=== PATIENT | female | born 1950 | race Caucasian/White ===

== ENCOUNTER 2024-07-31 15:14 | Emergency (ER) | payer MEDICARE, SELFPAY ==
--- NOTE | ~2024-07-31 | CT_ITS ---
EXAMINATION: CT brain wo con DATE: 07/31/2024 16:03 INDICATION: Fall with left-sided head injury, headache and facial pain. TECHNIQUE: Computed tomography (CT) of the head was performed without intravenous contrast. Sagittal and coronal reconstructions were performed. The mA was adjusted according to patient size. Iterative reconstruction technique was employed. The dose-length product was 605.33 mGy-cm. COMPARISON: None FINDINGS: No fracture. No acute intracranial hemorrhage or acute infarction. 2.3 x 2.3 x 1.9 cm CSF attenuation likely arachnoid cyst in the right middle cranial fossa which exerts mass effect upon the anterior r ight temporal lobe. There is mild scattered white matter hypoattenuation consistent with chronic smal l vessel ischemic disease. Ventricles are normal and symmetric. There is an an enlarged CSF filled em pty sella in the pelvis. No masses identified. Changes of left intraocular lens replacement. Partial opacification of the bilateral sphenoid sinuses with thickened sclerotic sewell consistent with chroni c sinusitis. The orbits, paranasal sinuses and mastoid air cells are normal. IMPRESSION: 1. No fracture or acute intracranial process. 2. Enlarged empty sella which can be seen secondary to idiopathic intracranial hypertension. Reviewed, dictated and finalized at location A. OR INFORMATICA ETL DEVELOPER IMPRESSION: 1. No fracture or acute intracranial process. 2. Enlarged empty sella which can be seen secondary to idiopathic intracrania l hypertension.
--- NOTE | ~2024-07-31 | CT_ITS ---
EXAMINATION: CT facial & cervical spine wo DATE: 07/31/2024 16:03 INDICATION: Head injury. TECHNIQUE: Computed tomography (CT) of the maxillofacial region and cervical spine was performed with out intravenous contrast. Automated exposure control and iterative reconstruction technique were empl oyed. The dose-length product was 214.09 mGy-cm. COMPARISON: None FINDINGS: MAXILLOFACIAL CT: There is left frontal scalp soft tissue swelling. There are likely changes of left ocular lens replac ement surgery. The mastoid air cells are normal. The sella is enlarged and contiguous with aggressive lytic change involving the sphenoid sinus and clivus and pterygoid bones. There is sclerosis of the sewell of the sphenoid sinus. There is fluid attenuation in the sella and contiguous sphenoid sinus an d clivus with foci of gas. There is a cystic area in the adjacent right middle cranial fossa abutting the sella. CERVICAL SPINE CT: There is mild scarring at the lung apices. There is 2 mm anterolisthesis of C3 on C4. There is kyphos is of cervical spine. There is 13 degrees levoscoliosis of cervicothoracic spine. Vertebral body heig hts are normal. There is moderately decreased disc height at C3-C4, mildly decreased disc height at C 4-C5, and severely decreased disc height at C5-C6 and C6-C7. The following disc levels are specifical ly discussed: C2-C3: There is mild left uncovertebral joint osteoarthritis. There is mild bilateral facet joint ost eoarthritis. There is no neural foraminal stenosis. There is mild central canal stenosis. C3-C4: There is severe bilateral uncovertebral joint osteoarthritis. There is severe bilateral facet joint osteoarthritis. There is mild bilateral neural foraminal stenosis. There is no central canal st enosis. C4-C5: There is mild bilateral uncovertebral joint osteoarthritis. There is mild right facet joint os teoarthritis. There is no neural foraminal stenosis. There is no central canal stenosis. C5-C6: There is severe bilateral uncovertebral joint osteoarthritis. There is mild bilateral facet salome int osteoarthritis. There is mild bilateral neural foraminal stenosis. There is mild central canal st enosis. C6-C7: There is severe bilateral uncovertebral joint osteoarthritis. There is severe bilateral facet joint osteoarthritis. There is mild bilateral neural foraminal stenosis. There is mild central canal stenosis. C7-T1: There is no uncovertebral joint osteoarthritis. There is mild bilateral facet joint osteoarthr itis. There is no neural foraminal stenosis. There is no central canal stenosis. IMPRESSION: 1. No fracture. 2. Severe cervical spondylosis. 3. Abnormality of the middle skull base including the sella. These findings may be chronic sinusitis or neoplasm with subsequent surgical change. Correlate with surgical history. If there has been no pr ior surgery, brain MRI without and with contrast is recommended. Reviewed, dictated and finalized at location A. W CUTTER IMPRESSION: 1. No fracture. 2. Severe cervical spondylosis. 3. Abnormality of the middle skull base including the sella. These findings may be chronic sinusitis or neoplasm with subsequent surgical change. Correlate wi th surgical history. If there has been no prior surgery, brain MRI without and with contrast is recommended.
--- NOTE | ~2024-07-31 | CT_ITS ---
Clinical indication:Fall COMPARISON:None TECHNIQUE: Multiple contiguous axial images of the pelvis were performed without the administration o f intravenous contrast. FINDINGS: No acute or subacute fractures are appreciated. Superior lateral femoral acetabular joint space narrowing is redemonstrated system with osteoarthriti s. No cross-sectional imaging evidence to suggest osteonecrosis is present. Within the abdomen the appendix is unremarkable. Fecal stasis within the cecum. The bladder is minimally distended, and partially prolapsed. Densely calcified atherosclerotic disease is also noted. IMPRESSION: No acute or subacute fracture, as detailed above. Reviewed, dictated and finalized at location A. DESIGNER
--- NOTE | ~2024-07-31 | CT_ITS ---
EXAMINATION: CT lumbar spine wo con DATE: 07/31/2024 16:06 INDICATION: Low back pain. Fall. TECHNIQUE: Computed tomography (CT) of the lumbar spine was performed without intravenous contrast. A utomated exposure control and iterative reconstruction technique were employed. The dose-length produ ct was 690.75 mGy-cm. COMPARISON: None FINDINGS: There are old healed right rib fractures. There is 15 degrees levoscoliosis of lumbar spine . There is 5 mm anterolisthesis of L5 on S1. There is a compression fracture of L1 with 1/5 loss of h eight. There is moderately decreased disc height at L3-L4 and severely decreased disc height at L4-L5 and L5-S1. The following disc levels are specifically discussed: L1-L2: The disc does not extend beyond the endplate margin. There is mild bilateral facet joint osteo arthritis. There is no neural foraminal stenosis. There is no central canal stenosis. L2-L3: The disc is bulging. There is mild bilateral facet joint osteoarthritis. There is mild bilater al neural foraminal stenosis. There is mild central canal stenosis. L3-L4: The disc is bulging. There is severe bilateral facet joint osteoarthritis. There is moderate r ight and mild left neural foraminal stenosis. There is moderate central canal stenosis. L4-L5: The disc is bulging. There is severe bilateral facet joint osteoarthritis. There is moderate r ight and mild left neural foraminal stenosis. There is moderate central canal stenosis. L5-S1: The disc is bulging. There is severe bilateral facet joint osteoarthritis. There is moderate b ilateral neural foraminal stenosis. There is mild central canal stenosis. IMPRESSION: 1. L1 compression fracture, likely acute or subacute. 2. Severe lumbar spondylosis. 3. Lumbar levoscoliosis. Reviewed, dictated and finalized at location A. NT COORDINATOR
[2024-07-31 15:15] VITALS: BP 139/79; PULSE 60; RESP 20; TEMP 36.6; O2SAT 100
--- NOTE | 2024-07-31 15:25 | ED_ITS ---
HPI - Fall General Chief Complaint: Fall Stated Complaint: fall Time Seen by Provider: 07/31/24 15:25 Source: patient Mode of arrival: ambulatory Limitations: no limitations History of Present Illness HPI Narrative: Patient is a 74-year-old female with an accidental mechanical fall off of bed into a countertop next to the bed and hit her face and hip. She has pain to the left supraorbital face and left hip and lower back. MD complaint: fall Onset (ago): hour(s) (1) Fall from: out of bed ( Patient usually has a oneill size and she was in a twin and rolled off the bed accidentally) Fall witnessed: no Place fall occurred: home Loss of consciousness: none Prolonged down time: no Symptoms prior to fall: none Context: other ( patient fell out of bed and hit the counter top next to the bed accidentally) Location of injury: face, back ( lumbar region) and pelvis ( left hip /femur) Location of injury - extremities: Left: thigh Severity: moderate Severity scale (1-10): 4 Quality: sharp and throbbing Associated symptoms (after fall): denies Related Data Allergies Allergy/AdvReac Type Severity Reaction Status Date / Time epinephrine Allergy Unknown Unknown Verified 07/31/24 15:16 Penicillins Allergy Unknown Unknown Verified 07/31/24 15:16 Review of Systems Review of Systems: All systems reviewed & are unremarkable except as noted in HPI and below Constitutional: Constitutional: Reports no additional constitutional complaints Eyes: Eyes: Reports no additional eye complaints ENT: Reports system reviewed and no additional complaints, except as documented Cardiovascular: Cardiovascular: Reports no additional cardiovascular complaints Respiratory: Respiratory: Reports no additional respiratory complaints Gastrointestinal: Gastrointestinal: Reports no additional gastrointestinal complaints Genitourinary: Genitourinary: Reports no additional female genitourinary complaints Musculoskeletal: Musculoskeletal: Reports no additional musculoskeletal complaints Integumentary/Breasts: Skin/Breast: Reports system reviewed and no additional complaints, except as docu Neurologic: Reports system reviewed and no additional complaints, except as documented Psychiatric: Psychiatric: Reports no additional psychiatric complaints Endocrine: Endocrine: Reports no additional endocrine complaints Hematologic/Lymphatic: Hematologic/Lymphatic: Reports no additional hematologic/lymphatic complaints Allergic/Immunologic: Allergic/Immunologic: Reports no additional allergic/immunologic complaints Exam Const: General: healthy appearing Nutritional Appearance: well nourished Orientation/consciousness: patient oriented x3 HENMT: Head: normal to inspection Ears: external ears normal Face/Nose/Sinus: Normal external nose present Other: left supraorbital forehead region has ecchymosis and hematoma formation Eyes: Conjunctivae: conjunctivae normal Pupils: Equal, round and reactive pupils present EOM: EOMs intact bilaterally Neck: Neck: normal visual inspection Chest: Chest palpation & inspection: normal inspection of the chest Resp: Effort & Inspection: normal respiratory effort and not labored Auscultation: clear to auscultation bilaterally and no crackles Cardio: Rate: regular rate Rhythm: regular rhythm Heart sounds: no murmurs GI: Inspection: non-distended GI Palp: Yes Soft to palpation and No Tenderness to palpation present (GI) Auscultation: normal bowel sounds : General: Yes bladder normal to palpation Back/Spine/Pelvis: Back: no CVA tenderness Skin: General skin exam: normal color Rashes: no rashes Wounds: no wounds Other: ecchymosis of the left hip region Neuro: General: patient oriented x3 Cranial nerves: Yes Nystagmus not present Speech: normal speech Gait exam (Neuro): Normal gait present Extrem: General: normal to inspection Other: tender left hip to palpation; tender lumbar spine to palpation Psych: Mental Status: mental status grossly normal Affect: normal affect Attitude: cooperative Course Vital Signs Vital signs: Vital Signs Oxygen Delivery Room Air 07/31/24 15:14 Temperature 36.6 C 07/31/24 15:15 Pulse Rate 72 07/31/24 17:30 Respiratory Rate 18 07/31/24 17:30 Blood Pressure 150/84 H 07/31/24 17:30 Pulse Oximetry 97 07/31/24 17:30 Oxygen Delivery Room Air 07/31/24 17:30 MDM - Fall MDM Narrative Medical decision making narrative: patient is a 74-year-old female with a fall out of bed prior to arrival and injuries to her left forehead and left hip and lumbar spine. We will do CT scans for reassurance at this time. Her CT scans shows middle brain asymmetry and it correlates with her history of prior brain tumor removal. She is aware of the abnormality in her brain. Imaging Data Attestation: I personally reviewed and interpreted this imaging study as follows: Radiologist's impression: CT scan of the head is negative for acute process; chronic changes seen from prior brain tumor CT scan of the C-spine is negative for acute process CT scan of the pelvis is negative for acute process CT scan of lumbar spine is positive for L1 acute compression fracture Discharge Plan Discharge Clinical Impression: Compression fracture, Brain neoplasm Fall Qualifiers: Encounter type: initial encounter Qualified Code(s): W19.XXXA - Unspecified fall, initial encounter Patient Disposition: Home, Self-Care Condition: Stable Instructions: Procedures for Compression Fractures of the Spine (DC) Additional Instructions: please make an appointment for a local primary doctor. You can have a discussion about doing kyphoplasty for your lumbar fracture. we discussed the brain abnormality and you are aware about this finding chronically. Patient Language: Kiswahili Prescriptions: New hydrocodone-acetaminophen 5-325 mg tablet 1 tablet PO Q8H PRN (Reason: pain) Qty: 20 0RF Follow-up/Referrals: Christiano,Simran Mcpherson APN [Primary Care Provider] - Time of Disposition: 17:49
[2024-07-31 16:50] VITALS: BP 147/85; PULSE 70; RESP 18; O2SAT 98
[2024-07-31 17:15] VITALS: BP 149/84; PULSE 73; RESP 18; O2SAT 97
--- NOTE | 2024-07-31 17:15 | PC.NURSE ---
PT HAS BEEN UP TO RR IN WC WITH RN, TOLERATED WELL. PT RETURNED TO STRETCHER, WARM BLANKETS PROVIDED. DAUGHTER REMAINS AT BEDSIDE. PT IS AWAITING ERP DECISION AT THIS TIME. WILL CONTINUE TO MONITOR.
[2024-07-31 17:30] VITALS: BP 150/84; PULSE 72; RESP 18; O2SAT 97
== END 2024-07-31 17:55 | disposition home or self-care (01) ==
PROVIDERS: Emergency Provider Emergency Medicine; PCP Nurse Practitioner Family
DX: S32.010A Wedge compression fracture of first lumbar vertebra, initial encounter for closed fracture (principal); D49.6 Neoplasm of unspecified behavior of brain; W06.XXXA Fall from bed, initial encounter
CPT/HCPCS: 70450; 70486; 72125; 72131; 72192; 99284

== ENCOUNTER 2025-04-18 23:04 | Emergency (ER) | payer MEDICARE, SELFPAY ==
--- NOTE | ~2025-04-18 | CT_ITS ---
EXAMINATION: CT abdomen pelvis wo con DATE: 04/19/2025 00:33 INDICATION: Abdominal pain TECHNIQUE: Computed tomography (CT) of the abdomen and pelvis was performed without intravenous contrast. The dose-length product was 132.00 mGy-cm. Automated exposure control and iterative reconstruction technique were employed. COMPARISON: CT dated 07/31/2024 FINDINGS: There is bibasilar dependent atelectasis. Heart size normal. Calcified granulomas of the spleen. The liver, pancreas, adrenal glands and kidneys are unremarkable. There is fluid throughout the colon without wall thickening, consistent with diarrhea. Normal appendix. Gallbladder is distended. No significant small bowel dilation. Moderate fecal loading of the distal colon and rectum. There is stranding of the right inguinal soft tissues, likely from recent heart catheterization. There is a fat-containing left inguinal hernia. There is a fat-containing umbilical hernia. Is a chronic L1 superior endplate compression fracture which has progressed since 07/31/2024 with approximately 40% loss of vertebral body height. Severe lumbar spondylosis. Grade 1 spondylolisthesis at L5-S1. IMPRESSION: 1. Diffusely distended colon containing fluid without bowel wall thickening, compatible with diarrhea. 2: Interval progression of L1 superior endplate compression fracture compared with 07/31/2024. 3: Fat stranding of the right inguinal soft tissues, consistent with recent catheterization. Reviewed, dictated and finalized at location O. IMPRESSION: 1. Diffusely distended colon containing fluid without bowel wall thickening, co mpatible with diarrhea. 2: Interval progression of L1 superior endplate compression fracture compared with 07/31/2024. 3: Fat stranding of the right inguinal soft tissues, consistent with recent cat heterization.
[2025-04-18 23:05] VITALS: BP 123/71; PULSE 62; RESP 14; O2SAT 98
[2025-04-18] MEDS: SODIUM CHLORIDE 0.9% IV 1,000 ML 999 ML IV CONT (23:29)
--- NOTE | 2025-04-18 23:32 | PC.NURSE ---
LAB AT THE BEDSIDE
[2025-04-18 23:39] VITALS: TEMP 37.1
--- NOTE | 2025-04-18 23:43 | PC.NURSE ---
PATIENT AND DAUGHTER UPDATED ON LENGTH OF TIME FOR BLOOD WORK THEN FOR CT. VERBALIZED UNDERSTANDING. PATIENT IS AWARE THAT A URINE SAMPLE IS NEEDED. NS INFUSING TO LEFT WRIST AT THIS TIME
[2025-04-18 23:44] LABS: Hematocrit 31.8 % (35.0-42.0); Hemoglobin 9.9 g/dL (11.7-13.8); Immature Granulocyte Percent A 0.6 % (0.0-0.0); Immature Platelet Fraction Pct 0.8 % (1.0-7.0); Lymphocytes Absolute Auto 1.89 K/mm3 (1.10-4.50); Mean Corpuscular HGB Conc 31.1 g/dL (32-36); Mean Corpuscular Hemoglobin 29.1 pg (27.0-31.0); Mean Corpuscular Volume 93.5 fL (78.0-102.0); Nucleated Red Blood Cells Absolute Auto 0.00 K/mm3 (0.00-0.00); Nucleated Red Blood Cells Perc 0.0 % (0-0.0); Platelet Count Result 541 K/mm3 (150-420); Red Blood Count 3.40 M/mm3 (4.20-5.40); White Blood Count 11.8 K/mm3 (4.8-10.8)
[2025-04-18 23:48] VITALS: BP 125/67; PULSE 59; RESP 16; O2SAT 97
[2025-04-18 23:57] LABS: Alanine Aminotransferase 14 U/L (6-35); Albumin Level 4.5 g/dL (3.5-5.1); Alkaline Phosphatase 115 U/L (38-126); Anion Gap 6 mmol/L (4-12); Aspartate Amino Transferase 29 U/L (14-36); Bilirubin,Total 0.7 mg/dL (0.2-1.3); Blood Urea Nitrogen 28 mg/dL (7-17); Calcium 9.7 mg/dL (8.4-10.2); Carbon Dioxide 26 mmol/L (22-30); Chloride 102 mmol/L (98-107); Estimated CRCL calculation 27 ml/min; Glucose 121 mg/dL (65-110); Lipase 194 U/L (23-300); Osmolality Calculated 284 mOsm/kg (285-295); Potassium 4.7 mmol/L (3.4-5.0); Sodium 134 mmol/L (137-145); Total Protein 9.2 g/dL (6.3-8.2)
[2025-04-18 23:58] LABS: INR 1.0; Partial Thromboplastin Time 26.3 Sec (23.9-30.70); Prothrombin Time 11.1 Seconds (9.50-12.1)
[2025-04-19 00:01] VITALS: BP 138/74; PULSE 64; RESP 13; O2SAT 100
--- NOTE | 2025-04-19 00:02 | PC.NURSE ---
PATIENT BEING TRANSPORTED TO CT VIA WHEEL CHAIR
[2025-04-19 00:06] LABS: NT Pro B Type Natriuretic Pept 534 pg/mL (19.9-100)
--- NOTE | 2025-04-19 00:18 | PC.NURSE ---
PATIENT HAS RETURNED FROM CT
[2025-04-19 00:21] VITALS: BP 135/80; PULSE 66; RESP 11; O2SAT 99
[2025-04-19 00:27] LABS: Thyroid Stimulating Hormone 7.290 uIU/mL (0.465-4.680)
[2025-04-19 00:31] VITALS: BP 110/81; PULSE 65; RESP 21; O2SAT 100
[2025-04-19 00:31] LABS: Estimated Glomerular Filt Rate 34
--- NOTE | 2025-04-19 00:34 | PC.NURSE ---
PATIENT RESTING ON STRETCHER. DAUGHTER AT HER SIDE. CURRENTLY DENIES ANY NEEDS. PATIENT HAS CALL LIGHT IN REACH.
[2025-04-19 00:46] VITALS: BP 130/67; PULSE 62; RESP 12; O2SAT 96
--- NOTE | 2025-04-19 00:56 | ED_ITS ---
HPI - General Adult General Chief complaint: Unspecified Stated complaint: Constipation Time Seen by Provider: 04/18/25 23:22 Source: patient and family Limitations: no limitations History of Present Illness HPI narrative: This is a 75-year-old female with a history of peripheral vascular disease was recently discharged from the hospital after she had a stent placed for peripheral artery disease right leg. Patient also has a fracture of her right wrist approximately 2 months ago and was started on narcotic pain medicine and presents tonight with some unable to have a bowel movement for the past 2 weeks. She has some abdominal discomfort with no pain with palpation no flank pain does have some dysuria with no fever chills no chest pain or shortness of breath no flank pain no diarrhea constipation no nausea vomiting. Onset (ago): week(s) Severity: moderate Related Data Home Medications ?Medication ?Instructions ?Recorded ?Confirmed ?Last Taken ?Type aspirin 81 mg tablet,delayed 81 mg PO DAILY 04/18/25 1 Unknown History release (Adult Aspirin Regimen) atorvastatin 80 mg tablet 80 mg 04/18/25 Unknown Hist ory buspirone 10 mg tablet mg 04/18/25 Unknown History carvedilol 3.125 mg tablet mg 04/18/25 Unknown Histor y empagliflozin 10 mg tablet mg 04/18/25 Unknown Histor y (Jardiance) famotidine 40 mg tablet mg 04/18/25 Unknown History losartan 25 mg tablet mg 04/18/25 Unknown History sertraline 100 mg tablet mg 04/18/25 Unknown History ticagrelor 90 mg tablet (Brilinta) mg 04/18/25 Unknow n History tizanidine 2 mg tablet mg 04/18/25 Unknown History Allergies Allergy/AdvReac Type Severity Reaction Status Date / Time epinephrine Allergy Unknown Unknown Verified 04/18/25 23:19 Penicillins Allergy Unknown Unknown Verified 04/18/25 23:19 Review of Systems 2 Review of Systems: All systems reviewed & are unremarkable except as noted in HPI and below PMFSH Past Medical History Medical History Peripheral vascular disease Exam 2 Const: General: cooperative, healthy appearing, comfortable, no acute distress and well developed Chest: Chest palpation & inspection: normal inspection of the chest and normal palpation of entire chest wall Resp: Effort & Inspection: normal respiratory effort and able to speak in complete sentences Auscultation: clear to auscultation bilaterally Cardio: Jugular venous distension: no JVD Palpation: normal PMI Rate: r egular rate Rhythm: regular rhythm Heart sounds: S1 normal heart sound present and S2 normal heart sound present GI: Inspection: normal to inspection GI Palp: Yes abdominal tenderness A uscultation: normal bowel sounds : General: Yes bimanual renal exam normal bilaterally Back/Spine/Pelvis: Back: no CVA tenderness Cervical Spine: normal cervical lordosis Thoracic/Lumbar Spine: thoracic and lumbar spine normal to inspection and thoraco-lumbar ROM normal Skin: General skin exam: normal color and no rashes or lesions noted Neuro: General: oriented to person, oriented to place, oriented to time and patient oriented x3 Extrem: General: normal to inspection, full ROM and capillary refill normal Course Course Emergency Course: Medical decision making narrative: Patient was evaluated by myself in the emergency department. History obtained from patient who is an independent historian and physical exam performed and witnessed by the nurse. External medical records were reviewed at this time. The patient had CT scan of the abdomen and pelvis without contrast which showed some mild diverticular disease with chronic compression fractures otherwise no acute intra-abdominal process. Patient had blood workup was performed and reviewed which showed a thyroid TSH of 7. Patient received IV fluids and a dose of magnesium citrate for constipation. A repeat assessment: Patient doing well on repeat exam with no acute distress. Patient was straight cath for urinalysis and antibiotic started. Repeat vitals are stable Patient agrees with discussion after shared medical decision-making and agrees with discharge. All questions answered to patient's satisfaction Advised follow-up with primary in 3 to 5 days for further evaluation. Vital Signs Vital signs: Vital Signs Pulse Rate 62 04/18/25 23:05 Respiratory Rate 14 04/18/25 23:05 Blood Pressure 123/71 04/18/25 23:05 Pulse Oximetry 98 04/18/25 23:05 Oxygen Delivery Room Air 04/18/25 23:05 Temperature 37.1 C 04/18/25 23:39 Pulse Rate 65 04/19/25 00:31 Respiratory Rate 21 H 04/19/25 00:31 Blood Pressure 110/81 04/19/25 00:31 Pulse Oximetry 100 04/19/25 00:31 Oxygen Delivery Room Air 04/19/25 00:31 Medical Decision Making Vital Signs Vital Signs: Vital Signs Pulse Rate 62 04/18/25 23:05 Respiratory Rate 14 04/18/25 23:05 Blood Pressure 123/71 04/18/25 23:05 Pulse Oximetry 98 04/18/25 23:05 Oxygen Delivery Room Air 04/18/25 23:05 Temperature 37.1 C 04/18/25 23:39 Pulse Rate 65 04/19/25 00:31 Respiratory Rate 21 H 04/19/25 00:31 Blood Pressure 110/81 04/19/25 00:31 Pulse Oximetry 100 04/19/25 00:31 Oxygen Delivery Room Air 04/19/25 00:31 Lab Data 04/18/25 23:40 04/18/25 23:40 Labs: Lab Results 04/18/25 04/19/25 Range/Units 23:40 00:30 WBC 11.8 H (4.8-10.8) K/mm3 RBC 3.40 L (4.20-5.40) M/mm3 Hgb 9.9 L (11.7-13.8) g/dL Hct 31.8 L (35.0-42.0) % MCV 93.5 (78.0-102.0) fL MCH 29.1 (27.0-31.0) pg MCHC 31.1 L (32-36) g/dL RDW 14.2 (11.6-14.4) % Plt Count 541 H (150-420) K/mm3 MPV 9.2 (9.2-11.8) fl Immature Gran % (Auto) 0.6 H (0.0-0.0) % Neut % (Auto) 71.0 H (50.0-70.0) % Lymph % (Auto) 16.0 L (18.0-42.0) % [place] % (Auto) 8.3 (2.0-11.0) % Eos % (Auto) 2.9 (1.0-6.0) % Baso % (Auto) 1.2 H (0.0-1.0) % Lymph # (Auto) 1.89 (1.10-4.50) K/mm3 [place] # (Auto) 0.98 H (0.10-0.90) K/mm3 Eos # (Auto) 0.34 (0.02-0.50) K/mm3 Baso # (Auto) 0.14 H (0.00-0.10) K/mm3 Abs Immat Gran (auto) 0.07 H (0.00-0.00) K/mm3 Absolute Neuts (auto) 8.42 H (1.70-7.20) K/mm3 Absolute Nucleated RBC 0.00 (0.00-0.00) K/mm3 Nucleated RBC % 0.0 (0-0.0) % % Immature Plt Fraction 0.8 L (1.0-7.0) % PT 11.1 (9.50-12.1) Seconds INR 1.0 APTT 26.3 (23.9-30.70) Sec Sodium 134 L (137-145) mmol/L Potassium 4.7 (3.4-5.0) mmol/L Chloride 102 (98-107) mmol/L Carbon Dioxide 26 (22-30) mmol/L Anion Gap 6 (4-12) mmol/L BUN 28 H (7-17) mg/dL Creatinine 1.48 H Cancelled (0.7-1.0) mg/dL Estim Creat Clear Calc 27 Cancelled ml/min Estimated GFR 34 L Cancelled (59 - ) Glucose 121 H (65-110) mg/dL Calculated Osmolality 284 L (285-295) mOsm/kg Lactic Acid 2.0 (0.4-2.0) mmol/L Calcium 9.7 (8.4-10.2) mg/dL Total Bilirubin 0.7 (0.2-1.3) mg/dL AST 29 (14-36) U/L ALT 14 (6-35) U/L Alkaline Phosphatase 115 (38-126) U/L NT-Pro-B Natriuret Pep 534 H (19.9-100) pg/mL Total Protein 9.2 H (6.3-8.2) g/dL Albumin 4.5 (3.5-5.1) g/dL Lipase 194 (23-300) U/L TSH 7.290 H (0.465-4.680) uIU/mL Critical Care Time Critical Care Time Critical Care Time: No Discharge Plan Discharge Clinical Impression: Constipation Qualifiers: Constipation type: unspecified constipation type Qualified Code(s): K59.00 - Constipation, unspecified UTI (urinary tract infection) Qualifiers: Urinary tract infection type: site unspecified Hematuria presence: without hematuria Qualified Code(s): N39.0 - Urinary tract infection, site not specified Patient Disposition: Home Condition: Stable Instructions: Antibiotic Form, Constipation (ED), Urinary Tract Infection in Women (ED) Additional Instructions: Advised follow-up primary care physician within the next 3 to 5 days for further evaluation and treatment. Patient Language: Indian Prescriptions: New Linzess 72 mcg capsule 72 mcg PO QAM Qty: 20 0RF nitrofurantoin monohyd/m-cryst [Macrobid] 100 mg capsule 100 mg PO Q12H 7 Days Qty: 14 0RF Rx Instructions: must administer with a meal/food No Action hydrocodone-acetaminophen 5-325 mg tablet 1 tablet PO Q8H PRN (Reason: pain) Qty: 20 0RF sertraline 100 mg tablet buspirone 10 mg tablet Jardiance 10 mg tablet aspirin [Adult Aspirin Regimen] 81 mg tablet,delayed release (DR/EC) 81 mg PO DAILY atorvastatin 80 mg tablet 80 mg tizanidine 2 mg tablet famotidine 40 mg tablet carvedilol 3.125 mg tablet losartan 25 mg tablet ticagrelor [Brilinta] 90 mg tablet Follow-up/Referrals: Alvarado,Simran Mcpherson APN [Primary Care Provider, Unknown] Time of Disposition: 01:10
[2025-04-19] MEDS: MAGNESIUM CITRATE 300 ML BTL 150 ML PO (01:03)
[2025-04-19] MEDS: NITROFURANTOIN MONOHYD MACROCR 100 MG CAP PO (01:10)
[2025-04-19 01:30] VITALS: BP 124/76; PULSE 68; RESP 18; O2SAT 97
[2025-04-19 01:30] LABS: Add Urine Microscopic? NO; Appearance Urine Clear (Clear); Glucose Urine UA 2+ (Negative); Leukocyte Esterase Ur Negative LEU/UL (Negative); Nitrate Urine Negative (Negative); Specific Grav Ur 1.010 (1.010-1.020)
--- NOTE | 2025-04-22 12:25 | PC.NURSE ---
BLOOD CULTURE PRELIMINARY RESULT: NO GROWTH. WAITING ON FINAL RESULTS AT THIS TIME.
--- NOTE | 2025-04-23 13:17 | PC.NURSE ---
PRELIMINARY BLOOD CULTURE RESULTS: NO GROWTH IN 48 HOURS. WAITING ON FINAL RESULTS.
--- NOTE | 2025-04-26 15:08 | PC.NURSE ---
blood culture final no growth
== END 2025-04-19 01:30 | disposition home or self-care (01) ==
PROVIDERS: Emergency Provider Emergency Medicine; PCP Nurse Practitioner Family
DX: K59.00 Constipation, unspecified (principal); N39.0 Urinary tract infection, site not specified; Z79.82 Long term (current) use of aspirin; Z79.899 Other long term (current) drug therapy
CPT/HCPCS: 36415; 74176; 80053; 81003; 83605; 83690; 83880; 84443; 85025; 85055; 85610; 85730; 96360; 99283; A9270; J7030